=== PATIENT | female | born 1970 | race Caucasian/White ===

== ENCOUNTER 2018-08-26 09:31 | Emergency (ER) | payer SELFPAY ==
[2018-08-26] MEDS ORDERED: ISOVUE-370 76%-LOCM 1 ML ONE (10:01)
[2018-08-26] MEDS ORDERED: Ondansetron PF 4 MG/2 ML Vial ONE (10:44)
[2018-08-26 11:01] LABS: Bilirubin Negative (Negative); Blood, Urine Negative (Negative); Clarity CLEAR (Clear); Glucose, Urine (Dipstick) Negative (Negative); Leukocyte Negative (Negative); Nitrite Negative (Negative); Protein, Urine (Dipstick) Negative (Neg-Trace); Specific Gravity, Urine 1.005 (1.002-1.036); Urobilinogen 0.2 mg/dL (0.2-1.0); pH, Urine 6.5 (5.0-9.0)
[2018-08-26 11:08] LABS: #Basophils 0.1 thou/uL (0.0-0.2); #Eosinphils 0.1 thou/uL (0.0-0.7); #Lymphocytes 1.9 thou/uL (1.20-3.40); #Monocytes 0.3 thou/uL (0.11-0.59); #Neutrophils 3.5 thou/uL (1.40-6.50); %Eosinophils 2.2 % (0.0-10.0); %Lymphocytes 32.3 % (21.0-51.0); %Monocytes 5.6 % (0.0-10.0); %Neutrophils 58.9 % (42.0-75.0); Hemoglobin 13.3 g/dL (12.0-16.0); Mean Corpuscular HGB CONC 33.7 g/dL (32.0-36.0); Mean Corpuscular Hemoglobin 31.1 pg (27.0-31.0); Mean Corpuscular Volume 92.2 fL (78.0-98.0); Mean Platelet Volume 6.8 fL (7.4-10.4); Platelet Count 226 thou/uL (130-400); RBC Distribution Width 11.9 % (11.5-14.5)
[2018-08-26 11:35] LABS: ALT (SGPT) 12 U/L (8-55); AST (SGOT) 15 U/L (5-34); Albumin 4.1 g/dL (3.5-5.0); Alkaline Phosphatase 66 U/L (40-150); Anion Gap 13 mmol/L (10-20); BUN (Urea Nitrogen) 22 mg/dL (7.0-18.7); Bilirubin, Total 0.4 mg/dL (0.2-1.2); Calc. Creatinine Clearance 0 mL/min (70-130); Calcium 9.4 mg/dL (7.8-10.44); Carbon Dioxide 29 mmol/L (22-29); Chloride 98 mmol/L (98-107); Estimated GFR-MDRD 57; Globulin 2.9 g/dL (2.4-3.5); Glucose 90 mg/dL (70-105); Potassium 3.5 mmol/L (3.5-5.1); Sodium 136 mmol/L (136-145)
--- NOTE | 2018-08-26 12:48 | CT ---
CT ABDOMEN AND PELVIS WITH CONTRAST: HISTORY: Left lower quadrant pain. COMPARISON: None. FINDINGS: The lung bases are clear. No pericardial effusion. The adrenal glands are unremarkable. The spleen, pancreas, and liver are unremarkable. There is cho lelithiasis. No hydronephrosis. The aortoiliac contour is nonaneurysmal. No free intraperitoneal gas or fluid. No dilated loops of large or small bowel. No retroperitoneal or periaortic adenopathy. Moderate degenerative disk space disease at L5-S1 with moderate facet arthropathy from L3 to S1. Chronic superior T11. No acute osseous abnormality. IMPRESSION: 1. No acute intraabdominal abnormality. 2. Cholelithiasis without evidence of cholecystitis. 3. Stone within the pancreatic head. May be sequela of prior pancreatitis. POS: CET
== END 2018-08-26 13:05 | disposition home or self-care (01) ==
LOC: ERS 09:31
DX: R10.30 Lower abdominal pain, unspecified (principal); I10 Essential (primary) hypertension; G43.909 Migraine, unspecified, not intractable, without status migrainosus; I48.91 Unspecified atrial fibrillation; E05.90 Thyrotoxicosis, unspecified without thyrotoxic crisis or storm; Z86.711 Personal history of pulmonary embolism; F17.210 Nicotine dependence, cigarettes, uncomplicated; Z79.01 Long term (current) use of anticoagulants; Z79.899 Other long term (current) drug therapy
CPT/HCPCS: 36415; 74177; 80053; 81003; 85025; 87077; 87086; 87186; 94760; 96361; 96372; 96374; J0500; J2405; Q9966